=== PATIENT | male | born 1995 | race Caucasian/White ===

== ENCOUNTER 2022-03-24 21:13 | Emergency (ER) | payer OTHER, SELFPAY ==
[2022-03-24 21:19] VITALS: BP 106/68; PULSE 106; RESP 24; O2SAT 98
--- NOTE | 2022-03-24 21:19 | ECG_ITS ---
Measurements Intervals [place] Rate: 102 P: 79 OK: 124 QRS: 89 QRSD: 101 T: 71 QT: 346 QTc: 452 Interpretive Statements SINUS TACHYCARDIA POSSIBLE RIGHT VENTRICULAR CONDUCTION DELAY [RSR (QR) IN V1/V2] ABNORMAL RHYTHM ECG NO PREVIOUS ECG AVAILABLE FOR COMPARISON Electronically Signed On 03-25-2022 17:13:02 CDT by Kristi Qiu M.D.
[2022-03-24 21:23] VITALS: PULSE 78
[2022-03-24 21:32] LABS: Glucose Point of Care 87 mg/dl (65-105)
[2022-03-24 21:55] LABS: Basophils Absolute Auto 0.1 K/mm3 (0.0-0.1); Basophils Percent Auto 1.4 % (0.2-1.2); Eosinophils Absolute Auto 0.8 K/mm3 (0-0.3); Hematocrit 43.3 % (42.0-52.0); Hemoglobin 14.2 g/dL (14.0-18.0); Immature Granulocyte Absolute 0.03 K/mm3 (0.00-0.031); Immature Granulocyte Percent A 0.4 % (0-0.5); Lymphocytes Absolute Auto 3.29 K/mm3 (0.9-3.2); Lymphocytes Percent Auto 43.1 % (18.3-44.2); Mean Corpuscular HGB Conc 32.8 g/dl (32-36); Mean Corpuscular Hemoglobin 31.3 pg (26-34); Mean Corpuscular Volume 95.6 fl (80-100); Mean Platelet Volume 10.4 fl (7.4-10.4); Monocytes Absolute Auto 0.7 K/mm3 (0.1-0.6); Monocytes Percent Auto 8.8 % (2.6-8.5); Neutrophils Absolute Auto 2.8 K/mm3 (1.3-6.7); Neutrophils Percent Auto 36.3 % (45.5-73.1); Platelet Count Result 253 k/mm3 (150-375); Red Blood Count 4.53 M/mm3 (4.6-6.20); Red Cell Distribution Width 11.9 % (11.5-14.5); White Blood Count 7.6 K/mm3 (4.5-10.0)
[2022-03-24 22:19] LABS: Alanine Aminotransferase 37 U/L (6-50); Albumin Level 5.1 g/dL (3.5-5.1); Alkaline Phosphatase 59 U/L (38-126); Anion Gap 23 mmol/L (8-16); Aspartate Amino Transferase 38 U/L (17-59); Bilirubin,Total 2.1 mg/dL (0.2-1.3); Blood Urea Nitrogen 9 mg/dL (9-20); Calcium 8.7 mg/dL (8.4-10.2); Carbon Dioxide 14 mmol/L (22-30); Chloride 100 mmol/L (98-107); Estimated CRCL calculation 75 ml/min; Estimated Glomerular Filt Rate > 60; Glucose 88 mg/dL (65-110); Potassium 3.7 mmol/L (3.4-5.0); Sodium 137 mmol/L (137-145)
[2022-03-24] MEDS: SODIUM CHLORIDE 0.9% IV 1,000 ML 999 ML IV CONT (22:26)
[2022-03-24 23:23] LABS: D Dimer 0.45 ug/mL (<0.48)
[2022-03-24 23:57] VITALS: BP 114/62; PULSE 84
[2022-03-24 23:58] VITALS: BP 114/69; PULSE 90
[2022-03-25 00:01] VITALS: BP 105/80; PULSE 86
[2022-03-25 00:09] VITALS: BP 102/68; BP 119/74; PULSE 67; PULSE 73
[2022-03-25 00:11] VITALS: BP 116/71; PULSE 87
--- NOTE | 2022-03-25 00:20 | ED.SYNCOPE ---
HPI - Syncope General Chief Complaint: Syncope Stated Complaint: SEIZURE Time Seen by Provider: 03/24/22 21:16 History of Present Illness HPI narrative: 26-year-old male was at work when he felt like his vision was going sandoval around the edges, he felt a sense of nausea and lightheadedness, and then he lost consciousness. Denies any chest pain or difficulty breathing, cannot recall the last time he had symptoms like this. No focal numbness or weakness anywhere. Related Data Allergies Allergy/AdvReac Type Severity Reaction Status Date / Time No Known Allergies Allergy Verified 03/24/22 21:24 Review of Systems Review of Systems: CONST: No fever. HEENT: No sore throat C/V: No chest pain RESP: No cough GI: Initial nausea now resolved : No dysuria. M/S: No joint pain. SKIN: No rash. NEURO: Very minimal headache PSYCH: [No depression] Exam Narrative: EXAMINATION OF ORGAN SYSTEMS/BODY AREAS: Constitutional: Vital signs per nursing GENERAL:[No acute distress, non-toxic appearing.] HEAD: Normal with no signs of head trauma. EYES: EOMI, conjunctiva normal ENT: Hearing grossly intact LUNGS: Nonlabored breathing. HEART: [Regular rate and rhythm] ABD: [Soft], nondistended EXT: Normal range of motion SKIN: [No rashes or lesions.] NEURO: [Alert and oriented x 3. No gross focal sensory or strength deficits.] Ambulating with normal steady gait PSYCH: Normal affect Course Vital Signs Vital signs: Vital Signs Pulse Rate 106 H 03/24/22 21:19 Respiratory Rate 24 H 03/24/22 21:19 Blood Pressure 106/68 03/24/22 21:19 Pulse Oximetry 98 03/24/22 21:19 Oxygen Delivery Room Air 03/24/22 21:19 Pulse Rate 70 03/25/22 00:25 Respiratory Rate 16 03/25/22 00:25 Blood Pressure 106/71 03/25/22 00:25 Pulse Oximetry 100 03/25/22 00:25 Oxygen Delivery Room Air 03/24/22 21:19 MDM - Syncope MDM Narrative Medical decision making narrative: 26-year-old male presenting with episode of syncope, vital signs normal, based on his description with a prodrome, no family history of sudden cardiac and no chest pain, I suspect most likely vasovagal syncope versus seizure, EKG obtained which shows sinus tachycardia without any further issue, labs here obtained show possibly elevated anion gap, however as this is his first episode of possible seizure I do not feel it is indicated to start antiepileptics at this time, he is given IV fluids and his vital signs are stable, he is not postictal, he is at baseline and ambulating normally with clear speech, I do feel he stable for discharge home with follow-up to neurologist and return precautions provided. Lab Data Result diagrams: 03/24/22 21:50 03/24/22 21:50 Labs: Lab Results 03/24/22 03/24/22 03/24/22 Range/Units 21:29 21:50 21:50 WBC 7.6 (4.5-10.0) K/mm3 RBC 4.53 L (4.6-6.20) M/mm3 Hgb 14.2 (14.0-18.0) g/dL Hct 43.3 (42.0-52.0) % MCV 95.6 (80-100) fl MCH 31.3 (26-34) pg MCHC 32.8 (32-36) g/dl RDW 11.9 (11.5-14.5) % Plt Count 253 (150-375) k/mm3 MPV 10.4 (7.4-10.4) fl Immature Gran % (Auto) 0.4 (0-0.5) % Neut % (Auto) 36.3 L (45.5-73.1) % Lymph % (Auto) 43.1 (18.3-44.2) % [place] % (Auto) 8.8 H (2.6-8.5) % Eos % (Auto) 10.0 H (0-4.4) % Baso % (Auto) 1.4 H (0.2-1.2) % Lymph # (Auto) 3.29 H (0.9-3.2) K/mm3 [place] # (Auto) 0.7 H (0.1-0.6) K/mm3 Eos # (Auto) 0.8 H (0-0.3) K/mm3 Baso # (Auto) 0.1 (0.0-0.1) K/mm3 Abs Immat Gran (auto) 0.03 (0.00-0.031) K/mm3 Absolute Neuts (auto) 2.8 (1.3-6.7) K/mm3 Absolute Nucleated RBC 0.0 (0.0-0.012) K/mm3 Nucleated RBC % 0.0 (0.0-0.2) % D-Dimer (<0.48) ug/mL Sodium 137 (137-145) mmol/L Potassium 3.7 (3.4-5.0) mmol/L Chloride 100 (98-107) mmol/L Carbon Dioxide 14 L (22-30) mmol/L Anion Gap 23 H (8-16) mmol/L BUN 9 (9-20) mg/dL Creatinine
[2022-03-25 00:25] VITALS: BP 106/71; PULSE 70; RESP 16; O2SAT 100
== END 2022-03-25 00:35 | disposition home or self-care (01) ==
PROVIDERS: Emergency Provider Emergency Medicine
DX: R55 Syncope and collapse (principal); R00.0 Tachycardia, unspecified; R94.31 Abnormal electrocardiogram [ECG] [EKG]
CPT/HCPCS: 36415; 80053; 82948; 85025; 85380; 93005; 96360; 99284; J7030

== ENCOUNTER 2022-04-03 03:05 | Inpatient (IN) | payer OTHER, SELFPAY ==
[2022-04-03] VITALS (25 sets, daily range): BP systolic 92–110; BP diastolic 50–70; PULSE 60–104; RESP 14–24; TEMP 36.2–36.9; O2SAT 97–100
--- NOTE | ~2022-04-03 | CT_ITS ---
EXAMINATION: CT chest abdomen pelvis w con DATE: 04/04/2022 15:22 INDICATION: possible tumors, has brain tumor . TECHNIQUE: Computed tomography (CT) of the chest, abdomen, and pelvis was performed with 100 mL Omnip aque-350 intravenous contrast. Automated exposure control and iterative reconstruction technique were employed. The dose-length product was 316.70 mGy-cm. COMPARISON: CT brain 04/04/2022, MR brain 04/03/2022 FINDINGS: Thoracic aorta: No significant dilation or calcification. Lung parenchyma and airways: Lungs and airways are clear. Thoracic inlet, axillae and chest wall: No thyroid or soft tissue mass. No axillary lymphadenopathy. Mediastinum: No mass or lymphadenopathy. Heart and pericardium: Normal heart size. No pericardial effusion. Coronary artery calcifications: Absent. Pleura: No effusion or mass. Thoracic bones: No acute osseous finding in the chest. ABDOMEN/PELVIS: Liver: Normal. Biliary/Gallbladder: Gallbladder is partially collapsed. No bile duct dilation. Pancreas: No mass or duct dilation. Spleen: Normal. Adrenals:No mass. Kidneys: No mass, stone, or hydronephrosis. GI tract: No small or large bowel dilation. Normal appendix. Mesentery/Peritoneum: No ascites, mass, or free air. Retroperitoneum: No mass Pelvis: Pelvic organs are within normal limits Soft Tissues: Soft tissues and body wall unremarkable. Abdominopelvic bones: No acute osseous finding in the abdomen/pelvis. IMPRESSION: Normal chest, abdomen, and pelvis CT findings. Reviewed, dictated and finalized at location K.
--- NOTE | ~2022-04-03 | XR_ITS ---
EXAMINATION: XR chest 1V portable DATE: 04/03/2022 04:28 INDICATION: Seizure. TECHNIQUE: A single frontal view of the chest was obtained. COMPARISON: None. FINDINGS: The chest demonstrates clear lungs without pneumonia, pleural effusion, or pneumothorax. Th e heart size is normal. IMPRESSION: 1. No acute cardiopulmonary disease. Reviewed, dictated and finalized at location A.
--- NOTE | ~2022-04-03 | CT_ITS ---
EXAMINATION: CT brain wo con DATE: 04/03/2022 04:21 INDICATION: Seizure, new onset. TECHNIQUE: Computed tomography (CT) of the head was performed without intravenous contrast. The mA wa s adjusted according to patient size. Iterative reconstruction technique was employed. The dose-lengt h product was 605.33 mGy-cm. COMPARISON: None FINDINGS: There is low attenuation in anterior right temporal lobe at least predominantly involving w roney matter. There is no acute intracranial hemorrhage. The ventricles are normal in size. The orbits are normal. There is mild mucosal thickening in the paranasal sinuses. The mastoid air cells are nor mal. There is cerumen in the external auditory canals. IMPRESSION: 1. Low attenuation in anterior right temporal lobe. The differential diagnosis includes encephalitis such as HSV encephalitis, vasogenic edema from occult neoplasm, and less likely acute or subacute inf arct. Brain MRI without and with contrast is recommended. Reviewed, dictated and finalized at location A. IMPRESSION: 1. Low attenuation in anterior right temporal lobe. The differential diagnosis includes encephalitis such as HSV encephalitis, vasogenic edema from occult demian plasm, and less likely acute or subacute infarct. Brain MRI without and with co ntrast is recommended.
--- NOTE | ~2022-04-03 | MR_ITS ---
EXAMINATION: MR brain/brain stem wo/w con DATE: 04/03/2022 12:03 INDICATION: Brain mass. TECHNIQUE: Magnetic resonance imaging (MRI) of the brain and brainstem was performed without and with 10 mL MultiHance intravenous contrast. COMPARISON: Head CT 04/03/2022 FINDINGS: There is a 1.6 cm enhancing mass in right temporal lobe with surrounding vasogenic edema. T here is no intracranial hemorrhage or acute ischemic infarct. The hippocampi are normal and symmetric . The paranasal sinuses are clear. The orbits are normal. The mastoid air cells are normal. IMPRESSION: 1. 1.6 cm enhancing mass in right temporal lobe. The differential diagnosis includes glioma and metas tatic disease. Reviewed, dictated and finalized at location A. IMPRESSION: 1. 1.6 cm enhancing mass in right temporal lobe. The differential diagnosis inc ludes glioma and metastatic disease.
--- NOTE | ~2022-04-03 | CT_ITS ---
EXAMINATION: CT brain wo con DATE: 04/04/2022 03:06 INDICATION: Right frontal headache, dizziness, increased temperature and new nausea TECHNIQUE: Computed tomography (CT) of the head was performed without intravenous contrast. Sagittal and coronal reconstructions were performed. The mA was adjusted according to patient size. Iterative reconstruction technique was employed. The dose-length product was 605.33 mGy-cm. COMPARISON: head CT and brain MR dated 04/03/2022 FINDINGS: Again seen is prominent vasogenic edema in the anterior right temporal lobe. Subtle curvilinear regio n of increased density within the region of vasogenic edema. Correspond to the margins of an enhancin g mass better appreciated on prior postcontrast MR imaging. No acute intracranial hemorrhage, acute i nfarction or abnormal extra axial fluid collection. Ventricles are normal and symmetric. The orbits, paranasal sinuses and mastoid air cells are normal. IMPRESSION: 1. Unchanged vasogenic edema in the anterior right temporal lobe surrounding a subtle mass demonstra ting enhancement on prior MRI which is concerning for malignancy either prior or metastatic. Reviewed, dictated and finalized at location A. IMPRESSION: 1. Unchanged vasogenic edema in the anterior right temporal lobe surrounding a subtle mass demonstrating enhancement on prior MRI which is concerning for mal ignancy either prior or metastatic.
--- NOTE | 2022-04-03 03:06 | ECG_ITS ---
Measurements Intervals [place] Rate: 102 P: 83 VT: 159 QRS: 93 QRSD: 94 T: 78 QT: 331 QTc: 433 Interpretive Statements SINUS TACHYCARDIA BASELINE ARTIFACT POSSIBLE RIGHT VENTRICULAR CONDUCTION DELAY [RSR (QR) IN V1/V2] ABNORMAL ECG COMPARED TO ECG 03/24/2022 21:19:04 NO SIGNIFICANT CHANGES Electronically Signed On 04-03-2022 15:18:56 CDT by Zack Rosado M.D.
--- NOTE | 2022-04-03 04:09 | ED.SEIZURE ---
HPI - Seizure General Chief Complaint: Seizure Stated Complaint: SZ Time Seen by Provider: 04/03/22 03:28 History of Present Illness HPI Narrative: Patient is a 26-year-old male presenting with seizure-like activity. Patient was at work earlier today when he complained of feeling lightheaded and nauseated. Patient remembers laying down and then the next thing he remembers is waking up here in the ER. Patient was reportedly observed having seizure-like activity so his boss called EMS. For EMS, the patient was no longer seizing but he was postictal. Patient states that he had a similar episode approximately 10 days ago. He is unsure if he had seizure-like activity at that time. Currently, the patient states that he feels nauseated and has a slight headache. He denies numbness or weakness, vision changes, ataxia, chest pain, shortness of breath, abdominal pain, nausea or vomiting, diarrhea, leg swelling. Related Data Home Medications Medication Instructions Recorded Confirmed No Home Medications 04/03/22 04/03/22 Allergies Allergy/AdvReac Type Severity Reaction Status Date / Time No Known Allergies Allergy Verified 03/24/22 21:24 Review of Systems Review of Systems: All systems reviewed & are unremarkable except as noted in HPI and below PMFSH Social History Social History Years smoked: 6 Smoking status: Current every day smoker Tobacco type: e-cigarettes/vaping Alcohol intake: never Substance use type: marijuana Spiritual care concerns: No Exam Narrative: GENERAL: Well-appearing, well-nourished, and in no acute distress. HEAD: Normocephalic, atraumatic. EYES: PERRLA and EOMI. ENT: Nares clear, no rhinorrhea or epistaxis. Mucous membranes moist. NECK: Supple. CHEST: Clear to auscultation. No respiratory distress. HEART: Regular rate and rhythm. No murmur heard. Normal peripheral pulses. ABDOMEN: Soft, nontender, nondistended, normal active bowel sounds. EXTREMITIES: Normal range of motion. No edema. SKIN: Warm, dry, no rash. NEURO: No focal deficits. Alert and oriented x3. PSYCH: Normal mood and affect. Course Course Emergency Course: Patient is a 26-year-old male presenting with new onset seizures. Vitals within normal limits. Patient is nontoxic and in no acute distress. Exam is unremarkable. Neurologically intact. CT head is concerning for low-attenuation in the anterior right temporal lobe. Spoke with neurosurgery who recommends twice daily Keppra. Patient was given a dose while in the department. Patient admitted to medicine for observation and MRI. Vital Signs Vital signs: Vital Signs Temperature 97.8 F 04/03/22 03:04 Pulse Rate 104 H 04/03/22 03:04 Respiratory Rate 20 04/03/22 03:04 Blood Pressure 109/59 L 04/03/22 03:04 Pulse Oximetry 100 04/03/22 03:04 Oxygen Delivery Room Air 04/03/22 03:04 Temperature 101.2 F H 04/04/22 02:37 Pulse Rate 75 04/03/22 21:26 Respiratory Rate 17 04/03/22 21:26 Blood Pressure 107/65 04/03/22 21:26 Pulse Oximetry 98 04/03/22 21:26 Oxygen Delivery Room Air 04/03/22 20:00 MDM - Seizure Lab Data Result diagrams: 04/03/22 04:28 04/03/22 04:28 Labs: Lab Results 04/03/22 04/03/22 04/03/22 Range/Units 04:28 04:28 04:45 WBC 8.4 (4.5-10.0) K/mm3 RBC 4.47 L (4.6-6.20) M/mm3 Hgb 14.0 (14.0-18.0) g/dL Hct 42.6 (42.0-52.0) % MCV 95.3 (80-100) fl MCH 31.3 (26-34) pg MCHC 32.9 (32-36) g/dl RDW 12.1 (11.5-14.5) % Plt Count 267 (150-375) k/mm3 MPV 10.4 (7.4-10.4) fl Immature Gran % (Auto) 0.6 H (0-0.5) % Neut % (Auto) 44.0 L (45.5-73.1) % Lymph % (Auto) 37.8 (18.3-44.2) % [place] % (Auto) 8.1 (2.6-8.5) % Eos % (Auto) 8.4 H (0-4.4) % Baso % (Auto) 1.1 (0.2-1.2) % Lymph # (Auto) 3.18 (0.9-3.2) K/mm3 [place] # (Auto) 0.7 H (0.1-0.6) K/m
[2022-04-03] MEDS: SODIUM CHLORIDE 0.9% IV 1,000 ML 999 ML IV CONT (04:27)
[2022-04-03 04:34] LABS: Basophils Absolute Auto 0.1 K/mm3 (0.0-0.1); Basophils Percent Auto 1.1 % (0.2-1.2); Eosinophils Absolute Auto 0.7 K/mm3 (0-0.3); Eosinophils Percent Auto 8.4 % (0-4.4); Hematocrit 42.6 % (42.0-52.0); Immature Granulocyte Absolute 0.05 K/mm3 (0.00-0.031); Immature Granulocyte Percent A 0.6 % (0-0.5); Lymphocytes Absolute Auto 3.18 K/mm3 (0.9-3.2); Lymphocytes Percent Auto 37.8 % (18.3-44.2); Mean Corpuscular HGB Conc 32.9 g/dl (32-36); Mean Corpuscular Hemoglobin 31.3 pg (26-34); Mean Corpuscular Volume 95.3 fl (80-100); Mean Platelet Volume 10.4 fl (7.4-10.4); Monocytes Absolute Auto 0.7 K/mm3 (0.1-0.6); Monocytes Percent Auto 8.1 % (2.6-8.5); Neutrophils Absolute Auto 3.7 K/mm3 (1.3-6.7); Platelet Count Result 267 k/mm3 (150-375); Red Blood Count 4.47 M/mm3 (4.6-6.20); Red Cell Distribution Width 12.1 % (11.5-14.5); White Blood Count 8.4 K/mm3 (4.5-10.0)
[2022-04-03 04:43] LABS: Alanine Aminotransferase 25 U/L (6-50); Albumin Level 4.8 g/dL (3.5-5.1); Alkaline Phosphatase 62 U/L (38-126); Anion Gap 21 mmol/L (8-16); Aspartate Amino Transferase 33 U/L (17-59); Bilirubin,Total 0.8 mg/dL (0.2-1.3); Blood Urea Nitrogen 6 mg/dL (9-20); Carbon Dioxide 18 mmol/L (22-30); Chloride 99 mmol/L (98-107); Estimated CRCL calculation 75 ml/min; Estimated Glomerular Filt Rate > 60; Glucose 99 mg/dL (65-110); Potassium 3.6 mmol/L (3.4-5.0); Sodium 138 mmol/L (137-145)
[2022-04-03 06:02] LABS: Amphetamine Screen Urine Negative (Negative); Barbiturate Screen Urine Negative (Negative); Benzodiazepines Screen Urine Negative (Negative); Cannabinoid Screen Urine Positive (Negative); Cocaine Screen Urine Negative (Negative); Methadone Screen Urine Negative (Negative); Opiate Screen Urine Negative (Negative); Phencyclidine Screen Urine Negative (Negative)
[2022-04-03] MEDS: levETIRAcetam 500MG/NACL 100ML 500 MG/100 ML BAG 400 MG IVPB ×2 (07:21→18:33)
--- NOTE | 2022-04-03 07:22 | PC.NURSE ---
Radha medication not scanning. verified medication with 2nd RN, Katie. order still active.
--- NOTE | 2022-04-03 09:19 | WPDNEURCNPN ---
Assessment and Plan Assessment and plan (1) Seizure: Code(s): R56.9 - Unspecified convulsions Status: Acute (2) Right temporal lobe mass: Code(s): G93.89 - Other specified disorders of brain Status: Acute Plan Mr. Gunter is a 26 year old male with no significant past medical history presenting with new onset seizure likley secondary to right temporal lobe lesion, as noted on CT head. - MRI brain w/wo contrast pending - Continue Keppra 500mg BID - Neurosurgery has been consulted Consult date: 04/03/22 Time Seen: 11:34 Reason for consult: Seizure HPI: Jaylen Gunter is a 26 year old male with no significant past medical history presenting due to seizure-like activity. Patient was working at [employer] last night when he had a witnessed seizure. Patient has no recollection of the event or how long it lasted, but denies any incontinence or tongue biting. He came to the ED on 03/25 after an episode of LOC. It is unclear if he had seizure-like activity at that time. Since 03/25, patient felt off and not completely like himself. He found it harder to focus. He denied any confusion, hallucinations, or headaches. After the seizure last night, patient was brought to [place] ED for evaluation. UDS was positive for cannabinoids. He had a CT head which hypodensity in the anterior right temporal lobe, concerning for possible mass. Neurosurgery was consulted. Patient says he feels well this morning other than being tired. He denies any prior history of seizures or family history of seizures. Review of Systems Constitutional: Constitutional: Reports no additional constitutional complaints Eyes: Eyes: Reports no additional eye complaints ENT: Reports system reviewed and no additional complaints, except as documented Cardiovascular: Cardiovascular: Reports no additional cardiovascular complaints Respiratory: Respiratory: Reports no additional respiratory complaints Gastrointestinal: Gastrointestinal: Reports no additional gastrointestinal complaints Genitourinary: Genitourinary: Reports no additional male genitourinary complaints Musculoskeletal: Musculoskeletal: Reports no additional musculoskeletal complaints Integumentary/Breasts: Skin/Breast: Reports system reviewed and no additional complaints, except as docu Neurologic: Reports system reviewed and no additional complaints, except as documented Psychiatric: Psychiatric: Reports no additional psychiatric complaints PMFSH Social History Social History Years smoked: 6 Smoking status: Current every day smoker Tobacco type: e-cigarettes/vaping Alcohol intake: never Substance use type: marijuana Spiritual care concerns: No Meds Home Medications and Allergies Home Medications Medication Instructions Recorded Confirmed Type No Home Medications 04/03/22 04/03/22 History Allergies Allergy/AdvReac Type Severity Reaction Status Date / Time No Known Allergies Allergy Verified 03/24/22 21:24 Vital Signs Vital Signs - 24 hr 04/03/22 03:04 04/03/22 03:04 04/03/22 03:04 Temperature 36.6 C Pulse Rate 104 H Respiratory Rate 20 Blood Pressure 109/59 L Pulse Oximetry 100 Oxygen Delivery Room Air Room Air 04/03/22 03:09 04/03/22 03:16 04/03/22 03:30 Temperature Pulse Rate 100 97 103 H Respiratory Rate 24 H 23 H Blood Pressure Pulse Oximetry Oxygen Delivery 04/03/22 03:31 04/03/22 03:45 04/03/22 04:07 Temperature Pulse Rate 103 H 93 94 Respiratory Rate 19 23 H 16 Blood Pressure 101/57 L Pulse Oximetry Oxygen Delivery 04/03/22 04:27 04/03/22 04:28 04/03/22 04:30 Temperature Pulse Rate 84 88 101 H Respiratory Rate 15 14 22 H Blood Pressure 110/70 Pulse Oximetry Oxygen Delivery 04/03/22 04:50 04/03/22 05:00 04/03/22 05:02 Temperature Pulse Rate 87 100 80 Respiratory Rate 22 H 20 15 Blood Pressure
--- NOTE | 2022-04-03 12:29 | PM.IMHP ---
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 Daley, neurologist instructed to continue keppra, patient will be seen neurosurgeon, will monitor, patient admitted observation status Review of Systems Constitutional: Constitutional: Reports no additional constitutional complaints PMFSH Social History Social History Years smoked: 6 Smoking status: Current every day smoker Tobacco type: e-cigarettes/vaping Alcohol intake: never Substance use type: marijuana Spiritual care concerns: No Meds Home Medications and Allergies Home Medications Medication Instructions Recorded Confirmed Type No Home Medications 04/03/22 04/03/22 History Allergies Allergy/AdvReac Type Severity Reaction Status Date / Time No Known Allergies Allergy Verified 03/24/22 21:24 Vital Signs Vital Signs - 24 hr 04/03/22 03:04 04/03/22 03:04 04/03/22 03:04 Temperature 97.8 F Pulse Rate 104 H Respiratory Rate 20 Blood Pressure 109/59 L Pulse Oximetry 100 Oxygen Delivery Room Air Room Air 04/03/22 03:09 04/03/22 03:16 04/03/22 03:30 Temperature Pulse Rate 100 97 103 H Respiratory Rate 24 H 23 H Blood Pressure Pulse Oximetry Oxygen Delivery 04/03/22 03:31 04/03/22 03:45 04/03/22 04:07 Temperature Pulse Rate 103 H 93 94 Respiratory Rate 19 23 H 16 Blood Pressure 101/57 L Pulse Oximetry Oxygen Delivery 04/03/22 04:27 04/03/22 04:28 04/03/22 04:30 Temperature Pulse Rate 84 88 101 H Respiratory Rate 15 14 22 H Blood Pressure 110/70 Pulse Oximetry Oxygen Delivery 04/03/22 04:50 04/03/22 05:00 04/03/22 05:02 Temperature Pulse Rate 87 100 80 Respiratory Rate 22 H 20 15 Blood Pressure 105/68 Pulse Oximetry Oxygen Delivery 04/03/22 05:31 04/03/22 05:32 04/03/22 05:47 Temperature Pulse Rate 81 84 86 Respiratory Rate 23 H 24 H 20 Blood Pressure 105/70 Pulse Oximetry Oxygen Delivery 04/03/22 06:00 04/03/22 06:01 04/03/22 06:15 Temperature Pulse Rate 74 74 76 Respiratory Rate 21 H 20 21 H Blood Pressure 104/62 Pulse Oximetry Oxygen Delivery 04/03/22 07:19 04/03/22 08:43 04/03/22 09:51 Temperature 97.1 F L Pulse Rate 91 60 63 Respiratory Rate 20 17 17 Blood Pressure 110/68 92/50 L 110/65 Pulse Oximetry 98 98 98 Oxygen Delivery 04/03/22 10:28 04/03/22 11:00 Temperature Pulse Rate Respiratory Rate Blood Pressure Pulse Oximetry 97 Oxygen Delivery Room Air Room Air Exam Narrative: Patient is comfortable, NAD HEENT: eyes are clear and none icteric LUNGS: normal respiratory effort ABD: not distended Lower extremities: no edema SKIN: nonjaundiced Neuro: grossly intact. H&P: Results Labs Labs: Short CBC 04/03/22 Range/Units 04:28 WBC 8.4 (4.5-10.0) K/mm3 Hgb 14.0 (14.0-18.0) g/dL Hct 42.6 (42.0-52.0) % Plt Count 267 (150-375) k/mm3 [facility] 04/03/22 04:28 Sodium 138 Potassium 3.6 Chloride 99 Carbon Dioxide 18 L BUN 6 L Creatinine 1.10 Glucose 99 Calcium 9.0 Liver Function 1
[2022-04-03 12:32] LABS: Magnesium 2.2 mg/dL (1.6-2.3)
[2022-04-04] MEDS: ONDANSETRON INJ 4 MG/2 ML VIAL IV PUSH ×2 (02:14→08:15)
[2022-04-04 02:37] VITALS: TEMP 38.4
[2022-04-04] MEDS: ACETAMINOPHEN 325 MG TABLET 650 MG PO ×2 (03:26→17:49)
--- NOTE | 2022-04-04 03:48 | P.PNCROSS_ITS ---
Event Note Event Note Event Note: 04/04/2022 at 02:40 Nursing staff called the PA earlier in the evening (before midnight) as the patient was having intractable headache on the right side. Patient had MRI earlier in the day and which confirmed 1.6 cm frontal mass with vasogenic edema. Weight discussed the case and requested neurosurgery had been be called to determine if the patient would need Decadron. Instead neurology was called in the given order for naproxen. I promptly discontinue the naproxen and the instead wrote for [place]. I requested nursing staff actually contact neurosurgeon who did not want the patient to receive Decadron. They plan to transfer the patient to higher level of care in the morning. Nursing staff then contacted me when I was rounding on the floor and let me know the patient began having recurrent nausea and vomiting. In order was given for Zofran. Patient's nausea improved but was still having small amounts of emesis. Then within next vitals check nursing staff noted that the patient was febrile with temperature of 101.4?. At that time I went and evaluated the patient and discussed his symptoms. He reported right temporal headache that was waxing and waning in nature currently a 4/10 in intensity. He reported his nausea had improved. He was not having any visual changes. He has not had any further seizures. He does have marked poor dentition with numerous dental caries beta denies any oral pain. With patient's progressing symptoms I was still concerned that the patient may be having an change in his intercranial process and repeat CT scan was ordered to rule out acute changes the patient's intercranial process that could result in fever and nausea. Although differential did does include possible dental infection or other infectious process including encephalitis or meningitis which seems less likely. I have ordered blood cultures and a lactic acid as well as CBC for morning in addition to the patient's already ordered CMP and magnesium level. Will also check COVID and influenza. 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 This critical care time included obtaining a history; examining the patient; pulse oximetry; ordering and review of studies; arranging urgent treatment with development of a management plan; evaluation of patient's response to treatment; frequent reassessment; and discussions with o ther providers. It was exclusive of separately billable procedures and treating other patients and teaching time. Please see Assessment and Plan section and the rest of the note for further information on patient assessment and treatment.
[2022-04-04 03:49] LABS: Basophils Absolute Auto 0.1 K/mm3 (0.0-0.1); Eosinophils Absolute Auto 0.2 K/mm3 (0-0.3); Eosinophils Percent Auto 3.5 % (0-4.4); Hematocrit 39.3 % (42.0-52.0); Hemoglobin 13.3 g/dL (14.0-18.0); Immature Granulocyte Absolute 0.01 K/mm3 (0.00-0.031); Immature Granulocyte Percent A 0.2 % (0-0.5); Lymphocytes Absolute Auto 0.29 K/mm3 (0.9-3.2); Lymphocytes Percent Auto 5.9 % (18.3-44.2); Mean Corpuscular HGB Conc 33.8 g/dl (32-36); Mean Corpuscular Hemoglobin 31.6 pg (26-34); Mean Corpuscular Volume 93.3 fl (80-100); Mean Platelet Volume 9.6 fl (7.4-10.4); Monocytes Absolute Auto 0.5 K/mm3 (0.1-0.6); Neutrophils Absolute Auto 3.9 K/mm3 (1.3-6.7); Neutrophils Percent Auto 79.4 % (45.5-73.1); Platelet Count Result 204 k/mm3 (150-375); Red Blood Count 4.21 M/mm3 (4.6-6.20); White Blood Count 4.9 K/mm3 (4.5-10.0)
[2022-04-04 03:59] LABS: Alanine Aminotransferase 23 U/L (6-50); Albumin Level 4.5 g/dL (3.5-5.1); Alkaline Phosphatase 63 U/L (38-126); Anion Gap 11 mmol/L (8-16); Aspartate Amino Transferase 28 U/L (17-59); Bilirubin,Total 1.3 mg/dL (0.2-1.3); Blood Urea Nitrogen 4 mg/dL (9-20); Calcium 8.8 mg/dL (8.4-10.2); Carbon Dioxide 28 mmol/L (22-30); Chloride 99 mmol/L (98-107); Estimated CRCL calculation 91 ml/min; Estimated Glomerular Filt Rate > 60; Glucose 114 mg/dL (65-110); Magnesium 1.6 mg/dL (1.6-2.3); Potassium 3.4 mmol/L (3.4-5.0); Sodium 138 mmol/L (137-145)
[2022-04-04 04:59] LABS: Influenza A QL RT-PCR Negative (Negative); Influenza B QL RT-PCR Negative (Negative); SARS-CoV-2 RNA PCR Positive
[2022-04-04] MEDS: levETIRAcetam 500MG/NACL 100ML 500 MG/100 ML BAG 400 MG IVPB (06:42)
[2022-04-04 08:15] VITALS: PULSE 78; RESP 16; O2SAT 99
[2022-04-04] MEDS: POTASSIUM CHLORIDE 20 MEQ TABLET 40 MEQ PO (08:15)
[2022-04-04] MEDS: MAGNESIUM OXIDE 400 MG TABLET PO (08:15)
[2022-04-04 08:30] VITALS: BP 111/65; PULSE 78; RESP 16; TEMP 37.3; O2SAT 99
[2022-04-04] MEDS: HYDROcodone/acetaminophen (*CRX) 5-325 MG TABLET 1 TAB PO (08:30)
--- NOTE | 2022-04-04 08:45 | WPDNEUROSGCN ---
Assessment and Plan Assessment and plan (1) Brain mass: Code(s): G93.89 - Other specified disorders of brain Status: Acute Plan Jaylen is a 26-year-old gentleman with recent seizure activity likely related to the anterior right temporal mass. The nature of this lesion is unknown and its removal will likely be necessary. Chest abdomen and pelvis CT could be performed to look for a tumor elsewhere that could have spread to the brain. All of this is odd in his age group. I will likely arrange for transfer to [facility] to my partner Lucila Chow, who is a brain tumor specialist, For further management of the brain mass, likely surgical. Review of Systems Review of Systems: Patient denies shortness of breath, cough, fever, chills, nausea, vomiting, weight loss, weight gain, chest pain, dysuria. He acknowledges seizure activity as above. His review of systems is otherwise negative on 12 systems except as noted elsewhere. [facility] Social History Social History Years smoked: 6 Smoking status: Current every day smoker Tobacco type: e-cigarettes/vaping Alcohol intake: never Substance use type: marijuana Spiritual care concerns: No Meds Home Medications and Allergies Home Medications Medication Instructions Recorded Confirmed Type No Home Medications 04/03/22 04/03/22 History Allergies Allergy/AdvReac Type Severity Reaction Status Date / Time No Known Allergies Allergy Verified 03/24/22 21:24 Vital Signs Vital Signs - 24 hr 04/03/22 09:51 04/03/22 10:28 04/03/22 11:00 Temperature 97.1 F L Pulse Rate 63 Respiratory Rate 17 Blood Pressure 110/65 Pulse Oximetry 98 97 Oxygen Delivery Room Air Room Air 04/03/22 14:00 04/03/22 21:26 04/03/22 20:00 Temperature 97.6 F 98.4 F Pulse Rate 73 75 Respiratory Rate 17 17 Blood Pressure 105/54 L 107/65 Pulse Oximetry 99 98 Oxygen Delivery Room Air 04/04/22 02:37 Temperature 101.2 F H Pulse Rate Respiratory Rate Blood Pressure Pulse Oximetry Oxygen Delivery Exam Neuro: Other: The patient is a normally developed, normal appearing male supine in hospital bed in no acute distress. He is somewhat emaciated appearing. His face is symmetrical, his tongue is midline, his pupils are equal and reactive and his extraocular movements are intact. He has missing and decaying teeth that is poor dentition. The patient is awake, alert, oriented x3, with good recall events, and fluent speech. There is no upper extremity drift, dysmetria or dyspraxia. Strength is normal in the bilateral upper and lower extremities to direct confrontation. Sensation is intact to light touch on both sides of the face on both arms and both legs. Reflexes appear normal in the upper and lower extremities with no clonus or Del Cid's. Gait and station were not tested. Results Labs CBC & Chem 7: 04/04/22 03:42 04/04/22 03:41 Labs: Short CBC 04/04/22 Range/Units 03:42 WBC 4.9 (4.5-10.0) K/mm3 Hgb 13.3 L (14.0-18.0) g/dL Hct 39.3 L (42.0-52.0) % Plt Count 204 (150-375) k/mm3 BMP 04/04/22 03:41 Sodium 138 Potassium 3.4 Chloride 99 Carbon Dioxide 28 BUN 4 L Creatinine 0.90 Glucose 114 H Calcium 8.8 Liver Function 04/04/22 Range/Units 03:41 Total Bilirubin 1.3 (0.2-1.3) mg/dL AST 28 (17-59) U/L ALT 23 (6-50) U/L Alkaline Phosphatase 63 (38-126) U/L Albumin 4.5 (3.5-5.1) g/dL Imaging My impression: CT and MRI of the brain were personally reviewed by me. These demonstrate edema in the right anterior temporal lobe. There is adequate space in the basal cisterns and no brainstem compression. On MRI there is an enhancing mass in the anterior temporal lobe which is over a cm and fairly severe coal. It is homogeneous enhancing with NO central clearing.
[2022-04-04] MEDS: cefTRIAXone 2 GM in SODIUM CHLORIDE 0.9% IV 100 ML 200 ML IVPB (09:45)
[2022-04-04 09:51] LABS: Estimated CRCL calculation 91 ml/min; Estimated Glomerular Filt Rate > 60
[2022-04-04 09:52] LABS: INR 1.2; Prothrombin Time 14.3 Seconds (11.1-14.7)
[2022-04-04] MEDS: metroNIDAZOLE 500 MG/ISO 100ML 500 MG/100 ML BAG 100 MG IVPB ×2 (10:19→18:24)
[2022-04-04] MEDS: REMDESIVIR 200 MG/NS 250 ML 200 MG/250 ML BAG 250 MG IVPB (11:34)
[2022-04-04 13:45] VITALS: BP 106/54; PULSE 80; RESP 16; TEMP 36.6; O2SAT 98
--- NOTE | 2022-04-04 15:00 | WPDNEUROPN ---
Progress Note: A&P Assessment and Plan (1) Right temporal lobe mass: Code(s): G93.89 - Other specified disorders of brain Status: Acute (2) Seizure: Code(s): R56.9 - Unspecified convulsions Status: Acute (3) Fever: Code(s): R50.9 - Fever, unspecified Status: Acute (4) COVID-19: Code(s): U07.1 - COVID-19 Status: Acute Plan Jaylen Gunter is a 26 year old male with no significant past medical history presenting with new onset seizure likely secondary to right temporal lobe lesion. MRI revealed R temporal mass with diffuse enhancement and vasogenic edema. Also with recent fevers (COVID+). Concern for tumor (?glioma). Also considering infectious process (given fever and poor dentition), although MRI did not show diffusion restriction as would be expected with abscess. - Continue Keppra 500mg BID - Continue antibiotics and acyclovir - CT chest, ABD, pelvis w/wo contrast pending to look for primary sites of malignancy - Neurosurgery has been consulted and is following -- will likely be transferred to [facility] for further intervention Subjective Date/time seen: 04/04/22 15:00 Interval history: Jaylen Gunter is a 26 year old male with no significant past medical history presenting due to seizure-like activity. Patient was at work when he had a witnessed seizure. Patient has no recollection of the event or how long it lasted, but denies any incontinence or tongue biting. He came to the ED on 03/25 after an episode of LOC. It is unclear if he had seizure-like activity at that time. Since 03/25, patient felt off and not completely like himself. He found it harder to focus. He denied any confusion, hallucinations, or headaches. After the seizure last night, patient was brought to [place] ED for evaluation. UDS was positive for cannabinoids. He had a CT head which hypodensity in the anterior right temporal lobe, concerning for possible mass. Interval history: MRI completed, showed enhancing mass with vasogenic edema in R temporal lobe. Febrile overnight and had headache. Received PRN Naproxen. He is COVID+. This AM, he reports no headache or any other complaints other than being tired. Due to concern for possible abscess, he was started on Ceftriaxone and Flagyl. No seizures. Review of Systems Constitutional: Constitutional: Reports as per HPI Eyes: Eyes: Reports no additional eye complaints ENT: Reports system reviewed and no additional complaints, except as documented Cardiovascular: Cardiovascular: Reports no additional cardiovascular complaints Respiratory: Respiratory: Reports no additional respiratory complaints Gastrointestinal: Gastrointestinal: Reports no additional gastrointestinal complaints Genitourinary: Genitourinary: Reports no additional male genitourinary complaints Musculoskeletal: Musculoskeletal: Reports no additional musculoskeletal complaints Integumentary/Breasts: Skin/Breast: Reports system reviewed and no additional complaints, except as docu Neurologic: Reports as per HPI Psychiatric: Psychiatric: Reports no additional psychiatric complaints Exam Const: General: comfortable and no acute distress HENMT: Mouth: Yes moist mucous membranes Other: poor dentition Eyes: EOM: EOMs intact bilaterally Resp: Effort & Inspection: normal respiratory effort Skin: General skin exam: normal color Neuro: Other: Normal mental status, EOMI, Face symmetric, Strength intact throughout, Sensation intact throughout. Extrem: General: normal to inspection Psych: Mental Status: mental status grossly normal Affect: normal affect Objective Data Vital Signs Vital Signs: Vital Signs - 24 hr 04/03/22 21:26 04/03/22 20:00 04/04/22 02:37 Temperature 36.9 C 38.4 C H Pulse Rate 75 Respiratory Rate 17 Blood Pressure 107/65 Pulse Oximetry 98 Oxygen Delivery Room Air 04/04/22 08:30 04/04/22 08:15 04/04/22 13:45 Temperature 37.3 C
--- NOTE | 2022-04-04 15:38 | WPDNEUROSGPN ---
Progress Note: A&P Assessment and Plan (1) Brain mass: Code(s): G93.89 - Other specified disorders of brain Status: Acute Plan I think it will be most convenient and efficient if we discharge marked to follow-up this week in the office with Dr. Lucila Chow, a brain tumor specialist rather than have him sit in the hospital or be transferred. He should be sent home on Keppra for seizure prophylaxis. He should not take any anticoagulants, even NSAIDs such as ibuprofen or naproxen. He should avoid aspirin as well. He may take Tylenol. Our office will contact him tomorrow if he is discharged to arrange follow-up and definitive management of his problem. Subjective Date/time seen: 04/04/22 15:38 Terrell is bout the same today. He had some headache overnight which is better this morning. He has been in bed on bed rest since admission. He is not complaining of any new issues with his arms legs or cranial nerves. Exam Neuro: Other: His face is symmetrical, his tongue is midline, his extraocular movements are intact. There is no upper extremity drift, dysmetria or dyspraxia. Objective Data Vital Signs Vital Signs: Vital Signs - 24 hr 04/03/22 21:26 04/03/22 20:00 04/04/22 02:37 Temperature 98.4 F 101.2 F H Pulse Rate 75 Respiratory Rate 17 Blood Pressure 107/65 Pulse Oximetry 98 Oxygen Delivery Room Air 04/04/22 08:30 04/04/22 08:15 04/04/22 13:45 Temperature 99.2 F 97.8 F Pulse Rate 78 78 80 Respiratory Rate 16 16 16 Blood Pressure 111/65 106/54 L Pulse Oximetry 99 99 98 Oxygen Delivery Room Air Intake/Output Intake/Output: Intake & Output 04/01/22 04/02/22 04/03/22 04/04/22 23:59 23:59 23:59 23:59 Intake Total 1470 418 Output Total 750 575 Balance 720 -157 Meds/Results Medications: Active Medications Generic Name Dose Route Start Last Admin Trade Name Freq PRN Reason Stop Dose Admin Acetaminophen 650 mg 04/03/22 22:27 04/04/22 03:26 Acetaminophen 325 Mg Tablet PO 650 mg Q6H PRN Administration Mild Pain (1-3) or Fever Hydrocodone Bitart/Acetaminophen 1 tab 04/03/22 23:38 04/04/22 08:30 Hydrocodone/Acetaminophen (*Crx) 5-325 Mg Tablet PO 1 tab Q6H PRN Administration Pain Rated 4-6 Levetiracetam 500 mg in 100 mls @ 400 mls/hr 04/03/22 18:00 04/04/22 06:57 Keppra Iv IVPB Infused Q12H EWA Infusion Remdesivir 100 mg in 250 mls @ 250 mls/hr 04/05/22 10:00 IVPB 04/08/22 10:59 Q24H EWA Ceftriaxone Sodium 2 gm/ 100 mls @ 200 mls/hr 04/04/22 09:00 04/04/22 10:15 Sodium Chloride IVPB Infused Q24H EWA Infusion Metronidazole 500 mg in 100 mls @ 100 mls/hr 04/04/22 10:00 04/04/22 11:19 Flagyl 500 Mg/Iso Soln 100 Ml IVPB Infused Q6HR EWA Infusion Magnesium Oxide 400 mg 04/04/22 09:00 04/04/22 08:15 Magnesium Oxide 400 Mg Tablet PO 400 mg QAM EWA Administration Ondansetron HCl 4 mg 04/04/22 01:44 04/04/22 08:15 Ondansetron Inj 4 Mg/2 Ml Vial IV PUSH 4 mg Q4H PRN Administration Nausea And Vomiting Radiology Results: ITS Impressions Chest X-Ray 04/03/22 06:26 IMPRESSION: 1. No acute cardiopulmonary disease. Brain MRI 04/03/22 12:13 IMPRESSION: 1. 1.6 cm enhancing mass in right temporal lobe. The differential diagnosis includes glioma and metastatic disease. Head CT 04/04/22 12:02 IMPRESSION: 1. Unchanged vasogenic edema in the anterior right temporal lobe surrounding a subtle mass demonstrating enhancement on prior MRI which is concerning for malignancy either prior or metastatic. Labs Labs: Laboratory Results - last 24 hr 04/04/22 04/04/22 04/04/22 03:41 03:42 03:42 WBC 4.9 RBC 4.21 L Hgb 13.3 L Hct 39.3 L MCV 93.3 MCH 31.6 MCHC 33.8 RDW 12.0 Plt Count 204 MPV 9.6 Immature Gran % (Auto) 0.2 Neut % (Auto) 79.4 H Lymph % (Auto) 5.9 L [place] % (Auto) 10.0 H Eos % (A
[2022-04-04] MEDS: levETIRAcetam 500MG/NACL 100ML 500 MG/100 ML BAG 100 MG IVPB (17:23)
--- NOTE | 2022-04-04 19:09 | PM.IMPN ---
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 (2) Seizure: Code(s): R56.9 - Unspecified convulsions Status: Acute Assessment and Plan: patient with seizure-like activity most likely secondary to frontal mass seen by Neurology patient is being treated with Keppra. 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 Review of Systems Constitutional: Constitutional: Reports no additional constitutional complaints Exam Narrative: Patient is comfortable, NAD HEENT: eyes are clear and none icteric LUNGS: normal respiratory effort ABD: not distended Lower extremities: no edema SKIN: nonjaundiced Neuro: grossly intact. Objective Data Vital Signs Vital Signs: Vital Signs - 24 hr 04/03/22 21:26 04/03/22 20:00 04/04/22 02:37 Temperature 98.4 F 101.2 F H Pulse Rate 75 Respiratory Rate 17 Blood Pressure 107/65 Pulse Oximetry 98 Oxygen Delivery Room Air 04/04/22 08:30 04/04/22 08:15 04/04/22 13:45 Temperature 99.2 F 97.8 F Pulse Rate 78 78 80 Respiratory Rate 16 16 16 Blood Pressure 111/65 106/54 L Pulse Oximetry 99 99 98 Oxygen Delivery Room Air Intake/Output Intake/Output: Intake & Output 04/01/22 04/02/22 04/03/22 04/04/22 23:59 23:59 23:59 23:59 Intake Total 1470 518 Output Total 750 575 Balance 720 -57 Meds/Results Medications: Active Medication
[2022-04-04 22:00] VITALS: BP 112/65; PULSE 68; RESP 17; TEMP 36.3; O2SAT 99
[2022-04-05] MEDS: metroNIDAZOLE 500 MG/ISO 100ML 500 MG/100 ML BAG 100 MG IVPB ×4 (00:17→17:50)
[2022-04-05] MEDS: ONDANSETRON INJ 4 MG/2 ML VIAL IV PUSH (02:03)
[2022-04-05] MEDS: levETIRAcetam 500MG/NACL 100ML 500 MG/100 ML BAG 400 MG IVPB ×2 (05:41→17:49)
[2022-04-05 06:00] VITALS: BP 119/34; PULSE 77; RESP 18; TEMP 36.3; O2SAT 98
[2022-04-05 06:44] LABS: INR 1.2; Prothrombin Time 14.9 Seconds (11.1-14.7)
[2022-04-05 06:57] LABS: Alanine Aminotransferase 23 U/L (6-50); Alkaline Phosphatase 53 U/L (38-126); Anion Gap 12 mmol/L (8-16); Aspartate Amino Transferase 33 U/L (17-59); Bilirubin,Total 0.7 mg/dL (0.2-1.3); Blood Urea Nitrogen 7 mg/dL (9-20); Calcium 8.5 mg/dL (8.4-10.2); Carbon Dioxide 24 mmol/L (22-30); Chloride 98 mmol/L (98-107); Estimated CRCL calculation 83 ml/min; Estimated Glomerular Filt Rate > 60; Glucose 99 mg/dL (65-110); Magnesium 1.6 mg/dL (1.6-2.3); Potassium 3.7 mmol/L (3.4-5.0); Sodium 134 mmol/L (137-145)
[2022-04-05 08:00] VITALS: PULSE 77; RESP 18; O2SAT 98
[2022-04-05] MEDS: cefTRIAXone 2 GM in SODIUM CHLORIDE 0.9% IV 100 ML 200 ML IVPB (09:07)
[2022-04-05] MEDS: MAGNESIUM OXIDE 400 MG TABLET PO (09:08)
[2022-04-05] MEDS: REMDESIVIR 100 MG/NS 250 ML 100 MG/250 ML BAG 250 MG IVPB (10:27)
--- NOTE | 2022-04-05 13:20 | PM.IMPN ---
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 [facility] follow up with neurosurgeon at [facility], patient has no new complaints, no seizures while on the hospital on Keppra, patient will compelete 3days of Remdesivir tomorrow, and remains clinically stable, will discharge with his brother to make sure he not lost to follow. (2) Seizure: Code(s): R56.9 - Unspecified convulsions Status: Acute Assessment and Plan: patient with seizure-like activity most likely secondary to frontal mass seen by Neurology patient is being treated with Keppra. 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 nuerosurgery is okay to discharge patient follow up with neurosurgeon at [facility], patient has no new complaints, no seizures while on the hospital on Keppra, patient will compelete 3days of Remdesivir tomorrow, and remains clinically stable, will discharge with his brother to make sure he not lost to follow. Review of Systems Constitutional: Constitutional: Reports no additional constitutional complaints Exam Narrative: Patient is comfortable, NAD HEENT: eyes are clear and none icteric LUNGS: normal respiratory effort ABD: not distended Lower extremities: no edema SKIN: nonjaundiced Neuro: grossly intact. Objective Data Vital Signs Vital Signs: Vital Signs - 24 hr 03/20
[2022-04-05 14:00] VITALS: BP 117/69; PULSE 66; RESP 18; TEMP 36.4; O2SAT 99
[2022-04-05 21:18] VITALS: BP 97/58; PULSE 67; RESP 18; TEMP 36.5; O2SAT 100
[2022-04-06] MEDS: ONDANSETRON INJ 4 MG/2 ML VIAL IV PUSH (01:22)
[2022-04-06] MEDS: metroNIDAZOLE 500 MG/ISO 100ML 500 MG/100 ML BAG 100 MG IVPB ×2 (01:22→06:20)
[2022-04-06 05:34] VITALS: BP 97/57; PULSE 58; RESP 17; TEMP 36.8; O2SAT 98
[2022-04-06] MEDS: levETIRAcetam 500MG/NACL 100ML 500 MG/100 ML BAG 400 MG IVPB (05:58)
[2022-04-06 06:25] LABS: INR 1.3; Prothrombin Time 15.6 Seconds (11.1-14.7)
[2022-04-06 06:30] LABS: Alanine Aminotransferase 30 U/L (6-50); Albumin Level 4.5 g/dL (3.5-5.1); Alkaline Phosphatase 57 U/L (38-126); Anion Gap 15 mmol/L (8-16); Aspartate Amino Transferase 46 U/L (17-59); Bilirubin,Total 0.6 mg/dL (0.2-1.3); Blood Urea Nitrogen 11 mg/dL (9-20); Carbon Dioxide 25 mmol/L (22-30); Chloride 95 mmol/L (98-107); Estimated CRCL calculation 91 ml/min; Estimated Glomerular Filt Rate > 60; Glucose 93 mg/dL (65-110); Magnesium 1.8 mg/dL (1.6-2.3); Potassium 3.7 mmol/L (3.4-5.0); Sodium 135 mmol/L (137-145)
[2022-04-06 08:00] VITALS: BP 115/60; PULSE 78; RESP 16; TEMP 36.7; O2SAT 98
[2022-04-06] MEDS: cefTRIAXone 2 GM in SODIUM CHLORIDE 0.9% IV 100 ML 200 ML IVPB (09:42)
[2022-04-06] MEDS: MAGNESIUM OXIDE 400 MG TABLET PO (09:42)
[2022-04-06 11:56] VITALS: BP 109/62; PULSE 66; RESP 18; TEMP 36.3; O2SAT 100
--- NOTE | 2022-04-06 12:00 | PM.DS ---
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 nuerosurgery is okay to discharge patient follow up with neurosurgeon at [facility], patient has no new complaints, no seizures while on the hospital on Keppra, patient will compelete 3days of Remdesivir tomorrow, and remains clinically stable, will discharge with his brother to make sure he not lost to follow. (2) Seizure: Code(s): R56.9 - Unspecified convulsions Status: Acute Assessment and Plan: patient with seizure-like activity most likely secondary to frontal mass seen by Neurology patient is being treated with Keppra. DS: Summary Hospital Course Reason for hospitalization: Chief Complaint: ?seizure-like activity Narrative: ?patient is a 26-year-old male with no past medical history initially patient was seen in the emergency department on March 25,? 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 Daley, neurologist? instructed to continue keppra, patient will be seen neurosurgeon, will monitor, Hospital Course: patient is a 26-year-old male with no past medical history initially patient was seen in the emergency department on March 25,? 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 Daley, neurologist? instructed to continue keppra, patient also head fever and he positive for COVID, patient oral hygein is very poor and has several decayed teeth think p
== END 2022-04-06 12:35 | disposition home or self-care (01) | DRG 58 ==
LOC: ANHED 03:31 → ANH3MEDSUR 08:54
PROVIDERS: Admitting Provider Internal Medicine; Emergency Provider Emergency Medicine; Visit Provider Family Medicine
DX: G93.89 Other specified disorders of brain (principal); U07.1 COVID-19; G93.6 Cerebral edema; R56.9 Unspecified convulsions; F17.290 Nicotine dependence, other tobacco product, uncomplicated; R11.2 Nausea with vomiting, unspecified; K02.9 Dental caries, unspecified
CPT/HCPCS: 36415; 70450; 70553; 71045; 71260; 74177; 80053; 80307; 82565; 83605; 83735; 85025; 85610; 87040; 87502; 93005; 96361; 96365; 96366; 96367; 96374; 96375; 96376; 99285; A9270; A9577; C9803; G0378; G0379; J0248; J0696; J1953; J2405; J7030; Q9967; U0003; U0005